=== PATIENT | male | born 1990 | race Caucasian/White ===

== ENCOUNTER 2024-08-24 11:48 | Emergency (ER) | payer OTHER, SELFPAY ==
[2024-08-24 11:54] VITALS: BP 123/77; PULSE 58; RESP 16; TEMP 36.8; O2SAT 97; BMI 27.1
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
[2024-08-24 14:55] VITALS: BP 132/76; PULSE 69; O2SAT 96
== END 2024-08-24 14:55 | disposition home or self-care (01) ==
PROVIDERS: Emergency Provider Physician Assistant
DX: S01.81XA Laceration without foreign body of other part of head, initial encounter (principal); S05.11XA Contusion of eyeball and orbital tissues, right eye, initial encounter; V89.2XXA Person injured in unspecified motor-vehicle accident, traffic, initial encounter
CPT/HCPCS: 12011; 70450; 70486; 99284